=== PATIENT | male | born 1945 | race Hispanic/Latino ===

== ENCOUNTER → 2018-09-25 | Outpatient (CLI) | payer OTHER | END | disposition home or self-care (01) | LOC: RAH 11:19 | PROVIDERS: ATTEND Family Medicine | DX: R31.0 Gross hematuria (principal) | CPT/HCPCS: 76870 ==

== ENCOUNTER → 2018-11-10 | Outpatient (CLI) | payer OTHER | END | disposition home or self-care (01) | LOC: RAH 12:16 | PROVIDERS: ATTEND Family Medicine | DX: N28.1 Cyst of kidney, acquired (principal); N39.0 Urinary tract infection, site not specified | CPT/HCPCS: 76770 ==

== ENCOUNTER → 2020-04-15 | Outpatient (CLI) | payer OTHER | END | disposition home or self-care (01) | LOC: OIH 10:06 | PROVIDERS: ATTEND Urology | DX: N28.1 Cyst of kidney, acquired (principal); K57.30 Diverticulosis of large intestine without perforation or abscess without bleeding; I70.90 Unspecified atherosclerosis; M47.815 Spondylosis without myelopathy or radiculopathy, thoracolumbar region; Z87.440 Personal history of urinary (tract) infections | CPT/HCPCS: 74176 ==